=== PATIENT | male | born 1980 | race Caucasian/White ===

== ENCOUNTER 2018-02-20 20:03 | Emergency (ER) | payer BC, OTHER ==
[~2018-02-20] VITALS: Ht 172.7 cm; Wt 87.0 kg
[2018-02-20 20:08] VITALS: TEMP 37; Ht 172.7 cm; Wt 87.0 kg
[2018-02-20] MEDS ORDERED: SODIUM CHLORIDE 0.9% 1000ML 1,000 ML IV STA (20:37)
[2018-02-20] MEDS ORDERED: ONDANSETRON INJ 2 MG/ML 2 ML VIAL IV STA (20:37)
--- NOTE | 2018-02-20 20:44 | EMERGENCY ROOM VISIT NOTE ---
History Report prepared by [place]: Durga Angela Under the Supervision of: Dr. Anam Hart D.O. First contact with patient: 20:23 Chief Complaint: ABDOMINAL PAIN Stated Complaint: ABD PAIN Nursing Triage Summary: Patient c/o of abdominal pain off and on x 2 weeks. + Diarrhea. + Vomiting. History of Present Illness The patient is a 37 year old male who presents to the Emergency Room with complaints of intermittent abdominal pain that onset about 2 weeks ago. The patient states that the pain is localized to the central abdomen. He describes the pain as more of a "discomfort." The at bedside notes that he was vomiting last week, but has not had any emesis over the past 7 days. The pain is improved by laying still and he adds that it is uncomfortable to walk. He denies any hematochezia or melena. The adds that the patient's daughter did have a "stomach bug" last week and was vomiting as well. He denies any chest pain. Source of History: patient Onset: 2 weeks ago Position: abdomen (Central) Quality: other ("discomfort" ) Timing: intermittent Modifying Factors (Worsening): other (walking) Modifying Factors (Relieving): rest (laying still) Associated Symptoms: + vomiting (last week), No melena, No hematochezia Review of Systems See HPI for pertinent positives & negatives. A total of 10 systems reviewed and were otherwise negative. Past Medical & Surgical Medical Problems: (1) Migraine Family History Patient reports no known family medical history. Social History Smoking Status: Never Smoker Drug Use: none Marital Status: Housing Status: lives with family Occupation Status: employed Current/Historical Medications Scheduled Omeprazole (Prilosec), 20 MG PO DAILY Allergies Coded Allergies: No Known Allergies (Unverified , 07/07/05) Physical Exam Vital Signs Date Time Temp Pulse Resp B/P (MAP) Pulse Ox O2 Delivery O2 Flow Rate FiO2 02/20/18 22:42 59 16 146/101 97 Room Air 02/20/18 21:39 59 16 135/93 97 Room Air 02/20/18 20:08 37.0 53 18 146/100 97 Room Air Physical Exam GENERAL: Patient is awake, alert, and in no acute distress. Patient is resting comfortably and showing no signs of anxiety EYES: The conjunctivae are clear. The pupils are round and reactive. EARS, NOSE, MOUTH AND THROAT: The nose is without any evidence of any deformity. Mucous membranes are moist. Tongue is midline NECK: The neck is nontender and supple. RESPIRATORY: Normal respiratory effort is noted. There is no evidence of wheezing rhonchi or rales to auscultation. CARDIOVASCULAR: Regular rate and rhythm noted. There no murmurs rubs or gallops normal S1 normal S2 GASTROINTESTINAL: The abdomen is soft. Bowel sounds are present in all quadrants. Abdomen is nontender. BACK: No midline tenderness or or step-off noted range of motion in flexion extension as well as rotation no signs of muscle spasm noted. MUSCULOSKELETAL/EXTREMITIES: There is no evidence of gross deformity. Full range of motion is noted in the hips and shoulders. SKIN: There is no obvious evidence of any rash. There are no petechiae, pallor or cyanosis noted. NEUROLOGIC: Patient is awake alert and oriented x3. Medical Decision & Procedures ER Provider Diagnostic Interpretation: Radiology results as stated below per my review and radiologist interpretation: ABDOMEN 2VIEW W/PA CHEST RTN CLINICAL HISTORY: epigastric pain pain COMPARISON STUDY: No previous studies for comparison. FINDINGS: The soft tissues, psoas shadows, renal outlines and intestinal gas pattern appear normal. There is no evidence for bowel obstruction. There is no evidence for free intraperitoneal air. No abnormal abdominal calcifications are seen. A frontal view of the chest was performed and is unremarkable. IMPRESSION: Normal study. The above report was generated using voice recognition software. It may contain grammatical, syntax or spelling errors. Electronically signed by: Ajit Lott M.D. 02/20/2018 9:20 PM Dictated Date/Time: 02/20/2018 9:19 PM GALLBLADDER-ABD LIMITED CLINICAL HISTORY: ABDOMINAL PAIN/GI pain. Nausea. TECHNIQUE: Ultrasound COMPARISON STUDY: None FINDINGS: Normal gallbladder. Common bile duct 6 mm. Liver is uniform. Pancreas and right kidney are unremarkable. No evidence for hydronephrosis. IMPRESSION: Normal study The above report was generated using voice recognition software. It may contain grammatical, syntax or spelling errors. Electronically signed by: Ajit Lott M.D. 02/20/2018 10:15 PM Dictated Date/Time: 02/20/2018 10:14 PM Laboratory Results 02/20/18 20:15 Red Blood Count 5.76, Mean Corpuscular Volume 89.4, Mean Corpuscular Hemoglobin 30.4, Mean Corpuscular Hemoglobin Concent 34.0, Mean Platelet Volume 10.2, Neutrophils (%) (Auto) 78.4, Lymphocytes (%) (Auto) 14.6, Monocytes (%) (Auto) 6.3, Eosinophils (%) (Auto) 0.3, Basophils (%) (Auto) 0.2, Neutrophils # (Auto) 7.33, Lymphocytes # (Auto) 1.37, Monocytes # (Auto) 0.59, Eosinophils # (Auto) 0.03, Basophils # (Auto) 0.02 02/20/18 20:15 Test 02/20/18 20:15 White Blood Count 9.36 K/uL (4.8-10.8) Red Blood Count 5.76 M/uL (4.7-6.1) Hemoglobin 17.5 g/dL (14.0-18.0) Hematocrit 51.5 % (42-52) Mean Corpuscular Volume 89.4 fL (80-100) Mean Corpuscular Hemoglobin 30.4 pg (25-34) Mean Corpuscular Hemoglobin Concent 34.0 g/dl (32-36) Platelet Count 279 K/uL (130-400) Mean Platelet Volume 10.2 fL (7.4-10.4) Neutrophils (%) (Auto) 78.4 % Lymphocytes (%) (Auto) 14.6 % Monocytes (%) (Auto) 6.3 % Eosinophils (%) (Auto) 0.3 % Basophils (%) (Auto) 0.2 % Neutrophils # (Auto) 7.33 K/uL (1.4-6.5) Lymphocytes # (Auto) 1.37 K/uL (1.2-3.4) Monocytes # (Auto) 0.59 K/uL (0.11-0.59) Eosinophils # (Auto) 0.03 K/uL (0-0.5) Basophils # (Auto) 0.02 K/uL (0-0.2) RDW Standard Deviation 41.5 fL (36.4-46.3) RDW Coefficient of Variation 12.8 % (11.5-14.5) Immature Granulocyte % (Auto) 0.2 % Immature Granulocyte # (Auto) 0.02 K/uL (0.00-0.02) Urine Color YELLOW Urine Appearance CLEAR (CLEAR) Urine pH 6.5 (4.5-7.5) Urine Specific [place] 1.019 (1.000-1.030) Urine Protein NEG (NEG) Urine Glucose (UA) NEG (NEG) Urine Ketones NEG (NEG) Urine Occult Blood TRACE (NEG) Urine Nitrite NEG (NEG) Urine Bilirubin NEG (NEG) Urine Urobilinogen NEG (NEG) Urine Leukocyte Esterase NEG (NEG) Urine WBC (Auto) 0 /hpf (0-5) Urine RBC (Auto) 0-4 /hpf (0-4) Urine Hyaline Casts (Auto) 0 /lpf (0-5) Urine Epithelial Cells (Auto) 0-5 /lpf (0-5) Urine Bacteria (Auto) NEG (NEG) Anion Gap 7.0 mmol/L (3-11) Est Creatinine Clear Calc Drug Dose 77.8 ml/min Estimated GFR () 74.6 Estimated GFR (Non- 64.4 BUN/Creatinine Ratio 11.7 (10-20) Calcium Level 9.3 mg/dl (8.5-10.1) Total Bilirubin 1.2 mg/dl (0.2-1) Direct Bilirubin 0.3 mg/dl (0-0.2) Aspartate Amino Transf (AST/SGOT) 12 U/L (15-37) Alanine Aminotransferase (ALT/SGPT) 21 U/L (12-78) Alkaline Phosphatase 67 U/L (45-117) Troponin I < 0.015 ng/ml (0-0.045) Total Protein 8.3 gm/dl (6.4-8.2) Albumin 4.7 gm/dl (3.4-5.0) Lipase 88 U/L (73-393) Laboratory results per my review. Medications Administered Medications (Trade) Dose Ordered Sig/[place] Route Start Time Stop Time Status Last Admin Dose Admin Ondansetron HCl (Zofran Inj) 4 mg NOW STAT IV 02/20/18 20:37 02/20/18 20:39 DC 02/20/18 20:48 4 MG Sodium Chloride 1,000 ml @ 999 mls/hr Q1H1M STAT IV 02/20/18 20:37 02/20/18 21:37 DC 02/20/18 20:48 999 MLS/HR Morphine Sulfate (MoRPHine SULFATE INJ) 4 mg Q15M PRN IV 02/20/18 20:45 02/20/18 23:52 DC 02/20/18 20:49 4 MG Pantoprazole Sodium (Protonix Tab) 40 mg NOW STAT PO 02/20/18 22:19 02/20/18 22:20 DC 02/20/18 22:40 40 MG Al Hydroxide/Mg Hydroxide (Maalox Susp) 30 ml STK-MED ONCE .ROUTE 02/20/18 22:37 02/20/18 22:38 DC 02/20/18 22:40 30 ML Lidocaine HCl (Viscous Lidocaine 2% Soln) 20 ml STK-MED ONCE .ROUTE 02/20/18 22:37 02/20/18 22:38 DC 02/20/18 22:41 20 ML ECG Per My Interpretation Indication: abdominal pain Rate (beats per minute): 51 Rhythm: sinus bradycardia Findings: no acute ischemic change, no ectopy, other (No EMERITA/STD) Comparison ECG Date: no prior available ED Course 2031: The patient was evaluated in room B4B. A complete history and physical examination were performed. 2036: Ordered Sodium Chloride 1000 mL @ 999 mL/hr IV, Zofran 4 mg IV 2044: Ordered Morphine Sulfate 4 mg IV. 2218: Pantoprazole 40 mg PO, GI Cocktail 24 mL PO. 2236: Upon reevaluation, the patient is resting in bed. I discussed the results and treatment plan with him. He verbalized agreement of the treatment plan. The patient was discharged home. Medical Decision Prior records/ancillary studies reviewed. Triage Nursing notes reviewed. Differential diagnosis: Etiologies such as appendicitis, diverticulitis, PUD, biliary pathology, UTI, pancreatitis, obstruction, mesenteric ischemia, aortic pathology, infections, inflammatory bowel disease, renal colic, as well as others were entertained. The patient is a 37-year-old male who presented to the emergency department with his significant other for an evaluation of epigastric pain. The pain was reproducible. The patient recently had a GI illness which other family members had earlier in the week but now he has epigastric pain. The patient's EKG did not show any acute ischemic changes. He was treated with medications for pain and nausea in the emergency department. He was also given proton pump inhibitors. I discussed patient's laboratory and radiographic studies with him. He was encouraged to follow-up with his primary care physician as soon as possible. He was also encouraged to continue the medications were prescribed return to the emergency department immediately if symptoms change worsen or the need arises. Medication Reconcilliation Current Medication List: was personally reviewed by me Blood Pressure Screening Patient's blood pressure: Elevated blood pressure Blood pressure disposition: Referred to PCP Impression Primary Impression: Epigastric abdominal pain Additional Impression: Gastritis Scribe Attestation The scribe's documentation has been prepared under my direction and personally reviewed by me in its entirety. I confirm that the note above accurately reflects all work, treatment, procedures, and medical decision making performed by me. Departure Information Dispostion Home / Self-Care Prescriptions Omeprazole (PRILOSEC) 20 Mg Cap 20 MG PO DAILY, #30 CAP Prov: Anam Hart, DO 02/20/18 Referrals No Doctor, Assigned (PCP) Forms Call Back Authorization, HOME CARE DOCUMENTATION FORM, IMPORTANT VISIT INFORMATION Patient Instructions [facility] Additional Instructions Continue all medications as prescribed. Continue using Tylenol for pain. Consider using Maalox or Mylanta as directed for symptomatic relief. Family doctor to schedule a follow-up appointment. You may require a referral to a drilling rig operator to further evaluate the cause your pain. Return to the emergency department immediately if symptoms change worsen or the need arises. Problem Qualifiers Additional Impression: Gastritis Gastritis type: unspecified gastritis Chronicity: acute Gastritis bleeding : presence of bleeding unspecified Qualified Codes: K29.00 - Acute gastritis without bleeding
[2018-02-20] MEDS ORDERED: MoRPHine SULFATE 4 MG/ML 1 ML CARP\\VIAL IV PRN (20:45)
[2018-02-20 20:52] LABS: BASO % 0.2 %; BASO ABS # 0.02 K/uL (0-0.2); EOS % 0.3 %; EOS ABS # 0.03 K/uL (0-0.5); HEMATOCRIT 51.5 % (42-52); HEMOGLOBIN 17.5 g/dL (14.0-18.0); IG# 0.02 K/uL (0.00-0.02); LYMPH % 14.6 %; LYMPH ABS # 1.37 K/uL (1.2-3.4); MEAN CELL VOLUME 89.4 fL (80-100); MEAN CORPUSCULAR HEMOGLOBIN 30.4 pg (25-34); MEAN PLATELET VOLUME 10.2 fL (7.4-10.4); MONO % 6.3 %; MONO ABS # 0.59 K/uL (0.11-0.59); NEUT % 78.4 %; NEUT ABS # 7.33 K/uL (1.4-6.5); PLATELET COUNT 279 K/uL (130-400); RED CELL DISTRIBUTION WIDTH CV 12.8 % (11.5-14.5); RED CELL DISTRIBUTION WIDTH SD 41.5 fL (36.4-46.3); WHITE BLOOD COUNT 9.36 K/uL (4.8-10.8)
[2018-02-20 21:14] LABS: ALBUMIN 4.7 gm/dl (3.4-5.0); CALCIUM 9.3 mg/dl (8.5-10.1); CREATININE 1.38 mg/dl (0.60-1.40); POTASSIUM 3.9 mmol/L (3.5-5.1); TOTAL PROTEIN 8.3 gm/dl (6.4-8.2)
--- NOTE | 2018-02-20 21:21 | DIAGNOSTIC IMAGING REPORT ---
ABDOMEN 2VIEW W/PA CHEST RTN CLINICAL HISTORY: epigastric pain pain COMPARISON STUDY: No previous studies for comparison. FINDINGS: The soft tissues, psoas shadows, renal outlines and intestinal gas pattern appear normal. There is no evidence for bowel obstruction. There is no evidence for free intraperitoneal air. No abnormal abdominal calcifications are seen. A frontal view of the chest was performed and is unremarkable. IMPRESSION: Normal study. The above report was generated using voice recognition software. It may contain grammatical, syntax or spelling errors. Electronically signed by: Ajit Lott M.D. 02/20/2018 9:20 PM Dictated Date/Time: 02/20/2018 9:19 PM
--- NOTE | 2018-02-20 22:16 | DIAGNOSTIC IMAGING REPORT ---
GALLBLADDER-ABD LIMITED CLINICAL HISTORY: ABDOMINAL PAIN/GI pain. Nausea. TECHNIQUE: Ultrasound COMPARISON STUDY: None FINDINGS: Normal gallbladder. Common bile duct 6 mm. Liver is uniform. Pancreas and right kidney are unremarkable. No evidence for hydronephrosis. IMPRESSION: Normal study The above report was generated using voice recognition software. It may contain grammatical, syntax or spelling errors. Electronically signed by: Ajit Lott M.D. 02/20/2018 10:15 PM Dictated Date/Time: 02/20/2018 10:14 PM
[2018-02-20] MEDS ORDERED: GI COCKTAIL PO STA (22:19)
[2018-02-20] MEDS ORDERED: PANTOprazole SOD 40 MG TAB PO STA (22:19)
[2018-02-20] MEDS ORDERED: ALUMINUM/MAGNESIUM SUSP 30 ML UDC ONE (22:37)
[2018-02-20] MEDS ORDERED: LIDOCAINE HCL 2% VISC SOLN 20 ML UDC ONE (22:37)
[2018-02-20] MEDS ORDERED: OMEP20CA9 PO (22:39)
[2018-02-20 22:42] VITALS: BP 146/101; PULSE 59; O2SAT 97
== END 2018-02-20 23:13 | disposition home or self-care (01) ==
LOC: C.EDB 20:04
DX: R10.13 Epigastric pain (principal); K29.00 Acute gastritis without bleeding; Z79.899 Other long term (current) drug therapy